=== PATIENT | female | born 1945 | race Two or more races ===

== ENCOUNTER 2017-04-16 09:54 | Day surgery (SDC) | payer MEDICARE, OTHER ==
[2017-04-16] VITALS (9 sets, daily range): BP systolic 115–150; BP diastolic 60–72
[~2017-04-16] VITALS: Ht 167.6 cm; Wt 66.7 kg
[~2017-04-16 09:54] MED LIST: ASPIRIN81 M2 PO; ATORVASTATIN CA10 MG ORAL; COZAAR25 MG PO; FERROUS SULFAT325 MG ORAL; FOLIC ACID1 MG ORAL; LR 1000ml 1,000 ML IVLG SCH; VITAMIN D400 UNI2 PO
[2017-04-16] MEDS ORDERED: LR 1000ml ONE (11:00)
[2017-04-16] MEDS ORDERED: Propofol 200mg/20ml IV ONE (11:00)
--- NOTE | 2017-04-16 11:21 | Short Stay Surgery H&P ---
History of Present Illness History of Present Illness Chief Complaint History of gastritis and family colon CA HPI Rona Bettencourt is a 71 year old female who was admitted on for Abdominal Pain/gastritis and screening colon due to family colon CA Patient History Allergies: Coded Allergies: No Known Allergies (Unverified , 04/16/17) PAST MEDICAL HISTORY: (1) Hypertension (2) Psoriasis (3) Hyperlipidemia Past Surgeries: Social History: Medication History Scheduled Aspirin (Aspirin), 81 MG PO DAILY, (Reported) Atorvastatin Calcium* (Lipitor*), 20 MG ORAL BEDTIME, (Reported) Cholecalciferol (Vitamin D3) (Vitamin D), 400 UNIT PO DAILY, (Reported) Ferrous Sulfate* (Ferrous Sulfate*), 325 MG ORAL DAILY, (Reported) Folic Acid* (Folic Acid*), 1 MG ORAL DAILY, (Reported) Losartan Potassium* (Cozaar*), 25 MG PO DAILY, (Reported) Review of Systems Cardiovascular: Reports: no symptoms Respiratory: Reports: no symptoms Skeletal: Reports: no symptoms Gastrointestinal: Reports: gastro esophageal reflux disease Genitourinary: Reports: no symptoms Neurologic: Reports: no symptoms Endocrine: Reports: no symptoms Hematologic: Reports: no symptoms Physical Exam Vital Signs Last Vital Signs Date Time Temp Pulse Resp B/P (MAP) Pulse Ox O2 Delivery O2 Flow Rate FiO2 04/16/17 10:38 98.1 61 18 115/70 96 Room Air Skin: normal HENT: normal Heart: normal Lungs: normal Abdomen: normal Extremities: normal Genitourinary: normal Plan Plan of Care Upper and lower GI endoscopies. Preop Interventions None. Summary of Findings See the reports Final Diagnosis: Attestation Are the patient's medical conditions optimized for surgery? Attestation Response: yes AUNG LOOMIS Apr 16, 2017 11:21
--- NOTE | 2017-04-16 11:22 | Pre-Procedure Note/Attestation ---
Pre-Procedure Note/Attestation Complete Prior to Procedure Planned Procedure: left Procedure Narrative: Examination o f the upper and the lower GI tracts Indications for Procedure Pre-Operative Diagnosis: R/O colon CA and gastritis. Attestation I attest that I discussed the nature of the procedure; its benefits; risks and complications; and alternatives (and the risks and benefits of such alternatives ), prior to the procedure, with the patient (or the patient's legal floor representative). I attest that, if there was a reasonable possibility of needing a blood transfusion, the patient (or the patient's legal floor representative) was given the [facility] standardized written summary, pursuant to the Fabio Mick Blood Safety Act ([place] Health and Safety Code # 1645, as amended). I attest that I re-evaluated the patient just prior to the surgery and that there has been no change in the patient's H&P, except as documented below: VLADISLAV,SAID Apr 16, 2017 11:22
[2017-04-16] MEDS ORDERED: LR 1000ml 1,000 ML IVLG SCH (11:33)
--- NOTE | 2017-04-16 11:39 | Anethesia Preoperative Eval ---
Anesthesia Pre-op PMH/ROS General Date of Evaluation: Apr 16, 2017 Time of Evaluation: 11:15 Anesthesiologist: Lauren ASA Score: ASA 3 Mallampati Score Class I : Soft palate, uvula, fauces, pillars visible Class II: Soft palate, uvula, fauces visible Class III: Soft palate, base of uvula visible Class IV: Only hard plate visible Mallampati Classification: Class II Surgeon: Babak Diagnosis: Abdominal pain Surgical Procedure: EGD, colonoscopy Family History: no anesthesia problems Allergies: Coded Allergies: No Known Allergies (Unverified , 04/16/17) Past Medical History Cardiovascular: Reports: HTN, Denies: CAD, MD, valve dz, arrhythmia, other Pulmonary: Denies: asthma, COPD, NANETTE, other Gastrointestinal/Genitourinary: Denies: GERD, CRI, ESRD, other Neurologic/Psychiatric: Denies: dementia, CVA, depression/anxiety, TIA, other Endocrine: Reports: hypothyroidism, Denies: DM, steroids, other HEENT: Denies: cataract (L), cataract (R), glaucoma, POARCH (L), POARCH (R), other Hematology/Immune: Denies: anemia, DVT, bleeding disorder, other Musculoskeletal/Integumentary: Denies: OA, RA, DJD, DDD, edema, other PMH Narrative: HTN, psorisis, dprssion PSxH Narrative: Thyroid, breast cystectomy Anesthesia Pre-op Phys. Exam Physician Exam Last Vital Signs Date Time Temp Pulse Resp B/P (MAP) Pulse Ox O2 Delivery O2 Flow Rate FiO2 04/16/17 10:38 98.1 61 18 115/70 96 Room Air Constitutional: NAD Neurologic: CN 2-12 intact Cardiovascular: RRR, no M/R/G Respiratory: CTA Gastrointestinal: S/NT/ND Airway Exam Mallampati Score: Class II MO: full ROM: full Teeth: intact Anesthesia Pre-op A/P Risk Assessment & Plan Assessment: For EGD, colonoscopy Plan: GA, TIVA Status Change Before Surgery: No Pre-Antibiotics Drug: None PJ NEAL M.D. Apr 16, 2017 11:39
--- NOTE | 2017-04-16 11:40 | Immediate Post-Op Evaluation ---
Immediate Post-Op Evalulation Immediate Post-Op Evalulation Procedure: EGD, colonoscopy Date of Evaluation: Apr 16, 2017 Time of Evaluation: 12:03 IV Fluids: 250 Blood Pressure Systolic: 132 Blood Pressure Diastolic: 77 Pulse Rate: 63 Respiratory Rate: 22 O2 Sat by Pulse Oximetry: 100 Temperature (Fahrenheit): 97.1 Pain Score (1-10): 0 Nausea: No Vomiting: No Complications No complication Patient Status: awake, patent, none Hydration Status: adequate Drug: None PJ NEAL M.D. Apr 16, 2017 11:40
[2017-04-16] MEDS ORDERED: fentaNYL 100 mcg/2 mL IV PRN (11:45)
--- NOTE | 2017-04-16 11:50 | Endoscopy Procedure Note ---
Endoscopy Procedure Note Procedures Performed: EGD - Compleltely normal Upper GI endoscopy. A random biopsy from gastric body obtained., colonoscopy - Minimal internal hemorrhoids. small 3mm polypoid hyperplastic lesions removed by cold biopsy forceps from mid transverse colon and rectum at 15 CM from anal openning. Specimen: yes Pt Tolerated Procedure Well: Yes Estimated Blood Loss: none Anesthesiologist: Dr. Aguilar Anesthesia: moderate sedation Medication Given: see anesthesia record Implant(s) used?: No 50 yrs or older w/o bx or poly: Yes 10yrs. F/U not recommended: Yes 10 yrs. F/U needed: Yes 18 years or older w/prev. colo: Yes <3yrs. since last colonoscopy: Yes Med reason:<3 yrs.: System Reason:<3 yrs.: Last colonoscopy >= to 3yrs: No AUNG LOOMIS Apr 16, 2017 11:50
--- NOTE | 2017-04-16 11:51 | Discharge Instructions ---
Discharge Instructions Discharge Instructions Follow up with: See the docotor at the office after two weeks. For Congestive Heart Failure Reminder Report to your physician any weight gain of 5 pounds or more in one week. AUNG LOOMIS Apr 16, 2017 11:51
[2017-04-16] MEDS ORDERED: Lacri-Lube Opth Oint 3.5gm ONE (12:03)
--- NOTE | 2017-04-16 12:03 | 48 Hour Post Anesthesia Eval ---
Post Anesthesia Evaluation Procedure: EGD, colonoscopy Date of Evaluation: Apr 16, 2017 Time of Evaluation: 12:30 Blood Pressure Systolic: 121 0: 60 Pulse Rate: 65 Respiratory Rate: 17 O2 Sat by Pulse Oximetry: 99 Airway: patent Nausea: No Vomiting: No Pain Intensity: 0 If pain is > 6 Comment: Patient complains of left eye pain. Eye drops ordered. No obvious conjunc Hydration Status: adequate Cardiopulmonary Status: Stable Mental Status/LOC: patient returned to baseline Follow-up Care/Observations: As per surgery Post-Anesthesia Complications: No anesthetic complication Follow-up care needed: N/A PJ NEAL M.D. Apr 16, 2017 12:03
[2017-04-16] MEDS ORDERED: Artificial Tears 1.4% Op Soln BOTH EYES ONE (12:15)
--- NOTE | 2017-04-16 21:45 | Operative Note - Dictated ---
DATE OF OPERATION: 04/16/2017 SURGEON: Rocky Hilliard M.D. PROCEDURE: Total colonoscopy with polypectomy. Preoperative Diagnoses: History of primarily colon cancer screening colonoscopy and history of colon polyp. POSTOPERATIVE DIAGNOSES: 1. Minimal internal hemorrhoids. 2. A small hyperplastic polypoid lesion of the size of 3 mm found in the mid transverse and rectal area, which were removed with cold biopsy forceps, otherwise completely normal total colonoscopy. MEDICATION USED: Per Dr. Aguilar, anesthesiologist. INSTRUMENT: GIF Olympus videocolonoscope. Description Of Procedure: The patient, after arriving endoscopy unit, was told about risks and benefits of the procedure, which she accepted and signed the informed consent. She was then put on the left lateral decubitus position. After adequate IV sedation, the scope was gently passed through the anal area, which revealed evidence of minimal internal hemorrhoids of no great significance. The rest of the rectum was normal except an area of minimal raised tissue consistent with hyperplastic polypoid lesion, which was the size of 3 mm, looked completely benign, and it was grabbed with cold biopsy forceps and removed totally. At this time, the scope was gradually advanced into descending colon and pushed forward towards the splenic flexure and transverse colon. All these areas remained to be normal. The colon cleanup was adequate. Incidentally, there was another hyperplastic 2 to 3 mm polypoid lesion, which was very soft, seen in the mid transverse, it was grabbed with cold biopsy forceps again in couple of occasions and totally removed and the specimen sent to the pathology lab. The rest of the colon all the way to the base of the cecum, however, remained to be completely normal and there was no any evidence of gross pathology, large polyps, tumors, etc. At this point, within 10 minutes, the scope was gradually pulled out and re-evaluation of the colon did not reveal any other pathology. The patient tolerated the procedure well and left the endoscopy room in good condition. Rocky Hilliard M.D. DR: BRUCE JOB#: [id number] CC:
--- NOTE | 2017-04-16 21:45 | Operative Note - Dictated ---
DATE OF OPERATION: 04/16/2017 SURGEON: Rocky Hilliard M.D. PROCEDURE: Esophagogastroduodenoscopy with biopsy. PREOPERATIVE DIAGNOSES: 1. Abdominal pain. 2. History of gastritis. Postoperative Diagnosis: Completely normal upper gastrointestinal endoscopy. Biopsy was taken per random from gastric body. MEDICATIONS USED: Per Dr. Aguilar, anesthesiologist. INSTRUMENT: GIF Olympus upper GI video endoscope. Description Of Procedure: The patient, after arriving endoscopy unit, was told about risks and benefits of the procedure, which she accepted and signed the informed consent. She was then put on the left lateral decubitus position. After adequate IV sedation, scope was gently passed through the cricopharyngeal area, was lodged into the upper esophagus, and gradually advanced towards gastroesophageal junction. The entire length of the esophagus looked normal. At this time, GE junction was examined, which looked normal. No evidence of Arizmendi's or hiatal hernia noted. The scope was then guided into the stomach, gastric cavity was distended, and gradually from the fundus and the body and the antrum, the scope was advanced towards the pyloric area. All the areas of the stomach were normal. No evidence of gastric abnormalities such as gastritis, peptic ulcer, polyps, tumors, angiodysplasia, etc., were found. One random biopsy from gastric body obtained and subsequently, the scope was passed through the pylorus. First and second portions of duodenum were found to be normal. At this time, the scope was pulled back into the stomach. Gastric cavity was distended again and retroflexion maneuver was applied and gradually, the areas of the fundus of the stomach were examined in a closer fashion, which revealed basically normal findings as mentioned earlier. Finally, the scope was pulled out and the procedure was terminated. The patient tolerated the procedure well. Rocky Hilliard M.D. DR: RONNIE JOB#: [id number] CC:
== END 2017-04-16 13:35 | disposition home or self-care (01) ==
LOC: GAS 09:54
DX: Z12.11 Encounter for screening for malignant neoplasm of colon (principal); K29.50 Unspecified chronic gastritis without bleeding; B96.81 Helicobacter pylori [H. pylori] as the cause of diseases classified elsewhere; K63.5 Polyp of colon; R10.9 Unspecified abdominal pain; K64.8 Other hemorrhoids; I10 Essential (primary) hypertension; L40.9 Psoriasis, unspecified; Z80.0 Family history of malignant neoplasm of digestive organs; Z79.82 Long term (current) use of aspirin; F32.9 Major depressive disorder, single episode, unspecified
CPT/HCPCS: 43239; 45380; J2704; J7120; 94003; 94150